=== PATIENT | male | born 1960 | race Caucasian/White ===

== ENCOUNTER 2020-08-27 12:40 | Outpatient (CLI) | payer BC, SELFPAY ==
--- NOTE | ~2020-08-27 | US_ITS ---
EXAMINATION: US scrotum doppler DATE: 08/27/2020 13:17 INDICATION: Retractile right testis TECHNIQUE: Testicular sonogram utilizing grayscale and Doppler COMPARISON: None. FINDINGS: The right testis measures 3.4 x 2.1 x 2.8 cm. The left testis measures 4.0 x 1.9 x 3.1 cm. Symmetric normal grayscale appearance to both testes. There is normal vascular flow to both testes. 2 mm right epididymal cyst. The right epididymis is otherwise normal with normal vascular flow. The left epididy mis is normal with normal vascular flow. There is no varicocele or hydrocele. IMPRESSION: 1. 2 mm right epididymal cyst. Otherwise normal scrotal ultrasound. Reviewed, dictated and finalized at location B.
== END 2020-08-27 12:41 | disposition home or self-care (01) ==
PROVIDERS: PCP Family Medicine; Visit Provider Family Medicine
DX: Q55.22 Retractile testis (principal); N50.3 Cyst of epididymis
CPT/HCPCS: 76870; 93976

== ENCOUNTER 2020-11-29 17:23 | Emergency (ER) | payer BC, SELFPAY ==
--- NOTE | 2020-11-29 17:33 | ED.GENADULT ---
HPI - General Adult General Chief complaint: Upper Respiratory Infection Stated complaint: upper respiratory infection Time Seen by Provider: 11/29/20 17:33 Source: patient and RN notes reviewed Mode of arrival: ambulatory Limitations: no limitations History of Present Illness HPI narrative: 60-year-old male presents with complaints of tickle in throat for the past 2 days. Fredis reports symptoms increased at approximately 1630 today, lost sense of taste and smell. Visit reports a coworker lost his sense of taste and smell on Sunday, November 27, 2020 and tested POSITIVE for COVID-19, in which he came in contact with for a brief period of time on Sunday, November 28, 2020. No treatment. Denies cough and chest congestion. Denies rhinorrhea and nasal congestion. Denies sore throat or problems swallowing. No high fevers, chills, and sweats. No nausea, vomiting, diarrhea, or abdominal pain. Tolerating p.o. intake well. Denies chest pain, coughing up blood, jaw pain, dental pain, facial pain, foreign body sensation, and rash. The patient reports he have not been diagnosed with COVID-19. The patient reports he is not waiting for the results of a COVID-19 lab test. The patient reports he do not have weakness or fatigue. Denies recent traveling. Fredis reports concerns for COVID-19 and exposure. At this time, patient is suspected of having COVID-19. Some parts of this dictation were generated by voice recognition software and may contain typographical and/or grammatical inaccuracies. Related Data Home Medications Medication Instructions Recorded Confirmed hydroxyurea 500 mg capsule 500 mg PO DAILY 08/13/20 11/29/20 Allergies Allergy/AdvReac Type Severity Reaction Status Date / Time latex Allergy Unknown Skin Verified 08/13/20 14:07 Reaction No Known Allergies Allergy Unknown Verified 08/13/20 14:07 Review of Systems Review of Systems: Narrative: CONSTITUTIONAL: Denies fever, chills, sweats. EYES: Denies visual changes, redness, discharge. ENT: Complains of loss sense of taste and smell. Denies rhinorrhea, congestion, sore throat, otalgia. CARDIOVASCULAR: Denies chest pain, palpitations, edema. RESPIRATORY: Denies wheezing, dyspnea, dry cough. GASTROINTESTINAL: Denies abdominal pain, nausea, vomiting, diarrhea. GENITOURINARY: Denies dysuria, hematuria, abnormal discharge. SKIN: Denies rash or itching. MUSCULOSKELETAL: Denies acute back pain, joint pain, myalgia. NEUROLOGIC: Denies numbness or focal weakness. PSYCHIATRIC: Denies anxiety or depression. All systems reviewed & are unremarkable except as noted in HPI and below [facility] Past Medical History Medical History (Updated 11/29/20 @ 18:04 by EMRE Archuleta) Atherosclerosis of aorta Colon polyps Diverticulosis Essential (primary) hypertension Essential thrombocythemia Hypogonadism Male erectile dysfunction, unspecified MRSA (methicillin resistant Staphylococcus aureus) June 2015 Other obesity Secondary polycythemia Testicular hypofunction Surgical History Surgical History (Updated 11/29/20 @ 17:41 by EMRE Archuleta) History of abdominal surgery In 2002 due to acute diverticulitis Family History Family History Father Hypertension, Onset Age: 68 Family history of cardiovascular disease, Onset Age: 68 Acute myocardial infarction, Onset Age: 68 Grandparent Carcinoma of colon, Onset Age: 70 Social History Social History (Updated 11/29/20 @ 17:42 by EMRE Archuleta) Smoking status: Former smoker Tobacco type: cigarettes Second hand tobacco smoke exposure: No Smoking end date: 11/12/02 Alcohol intake: current Substance use: never Living arrangements: with family Occupation/Education: occupation Gender identity (if verbalized by the patient): Male Comments At time of signature, agree with nurse past medical, surgi
[2020-11-29 17:41] VITALS: BP 158/86; PULSE 99; RESP 20; TEMP 37.7; O2SAT 98
[2020-11-29 17:43] VITALS: BP 158/86; PULSE 99; RESP 20; TEMP 37.7; O2SAT 98
== END 2020-11-29 18:24 | disposition home or self-care (01) ==
PROVIDERS: Emergency Provider Nurse Practitioner Family; PCP Family Medicine
DX: U07.1 COVID-19 (principal); Z87.891 Personal history of nicotine dependence; I70.209 Unspecified atherosclerosis of native arteries of extremities, unspecified extremity; I10 Essential (primary) hypertension; Z86.14 Personal history of Methicillin resistant Staphylococcus aureus infection; D47.3 Essential (hemorrhagic) thrombocythemia; D75.1 Secondary polycythemia
CPT/HCPCS: 87426; 99213; C9803; G0463

== ENCOUNTER → 2021-04-18 10:02 | Outpatient (CLI) | payer BC, SELFPAY ==
--- NOTE | ~2021-04-18 | XR_ITS ---
EXAMINATION: XR knee RT min 4V DATE: 04/18/2021 10:32 INDICATION: Right knee pain. TECHNIQUE: 4 views of right knee were obtained. COMPARISON: None. FINDINGS: Bone alignment is normal. No fracture. There is mild tricompartmental osteoarthritis. No kn ee joint effusion. IMPRESSION: 1. Mild right knee osteoarthritis. Reviewed, dictated and finalized at location A.
--- NOTE | ~2021-04-18 | XR_ITS ---
EXAMINATION: XR knee LT min 4V DATE: 04/18/2021 10:32 INDICATION: Left knee pain. TECHNIQUE: 4 views of left knee were obtained. COMPARISON: None. FINDINGS: Bone alignment is normal. No fracture. There is moderate osteoarthritis of medial compartme nt and mild osteoarthritis of lateral and patellofemoral compartments. No knee joint effusion. IMPRESSION: 1. Moderate left knee osteoarthritis. Reviewed, dictated and finalized at location A.
== END ==
PROVIDERS: PCP Family Medicine; Visit Provider Physician Assistant
DX: M25.561 Pain in right knee (principal); M25.562 Pain in left knee; M17.0 Bilateral primary osteoarthritis of knee
CPT/HCPCS: 73564

== ENCOUNTER 2023-08-02 12:47 | Outpatient (CLI) | payer OTHER, SELFPAY ==
[2023-08-02 13:54] LABS: Basophils Percent Auto 0.6 % (0.2-1.2); Eosinophils Absolute Auto 0.1 K/mm3 (0-0.3); Hematocrit 41.4 % (42.0-52.0); Hemoglobin 14.5 g/dL (14.0-18.0); Immature Granulocyte Absolute 0.01 K/mm3 (0.00-0.031); Immature Granulocyte Percent A 0.2 % (0-0.5); Lymphocytes Absolute Auto 1.39 K/mm3 (0.9-3.2); Lymphocytes Percent Auto 28.2 % (18.3-44.2); Mean Corpuscular Hemoglobin 40.3 pg (26-34); Mean Platelet Volume 10.5 fl (7.4-10.4); Monocytes Absolute Auto 0.5 K/mm3 (0.1-0.6); Monocytes Percent Auto 10.1 % (2.6-8.5); Neutrophils Percent Auto 59.9 % (45.5-73.1); Platelet Count Result 213 k/mm3 (150-375); Red Cell Distribution Width 12.9 % (11.5-14.5); White Blood Count 4.9 K/mm3 (4.5-10.0)
[2023-08-02 14:02] LABS: Alanine Aminotransferase 32 U/L (6-50); Albumin Level 4.3 g/dL (3.5-5.1); Alkaline Phosphatase 63 U/L (38-126); Anion Gap 5 mmol/L (8-16); Aspartate Amino Transferase 41 U/L (17-59); Bilirubin,Total 1.1 mg/dL (0.2-1.3); Blood Urea Nitrogen 16 mg/dL (9-20); Calcium 8.6 mg/dL (8.4-10.2); Carbon Dioxide 28 mmol/L (22-30); Chloride 103 mmol/L (98-107); Cholesterol 109 mg/dL (0-200); Estimated Glomerular Filt Rate > 60; Glucose 88 mg/dL (65-110); HDL Direct 33 mg/dL; Potassium 4.3 mmol/L (3.4-5.0); Sodium 136 mmol/L (137-145); Triglycerides 108 mg/dL (<150)
[2023-08-02 14:13] LABS: LDL Cholesterol Direct 60 mg/dL
[2023-08-02 14:18] LABS: Macrocytosis 1+ (NORMAL); Platelet Estimate Adequate (Adequate); Schistocytes None Seen (NORMAL)
[2023-08-03 18:12] LABS: Prostate Specific Antigen 2.1 ng/mL (< OR = 4.0)
[2023-08-07 00:10] LABS: Testosterone Total 494 ng/dL (250-1100)
== END 2023-08-02 12:48 | disposition home or self-care (01) ==
LOC: ANHGOSHLAB 12:48
PROVIDERS: PCP Emergency Medicine; Visit Provider Emergency Medicine
DX: E78.5 Hyperlipidemia, unspecified (principal); E29.1 Testicular hypofunction; D75.89 Other specified diseases of blood and blood-forming organs
CPT/HCPCS: 36415; 80053; 80061; 84153; 84403; 85025; G0103

== ENCOUNTER 2024-06-10 11:56 | Outpatient (CLI) | payer OTHER, SELFPAY ==
--- NOTE | 2024-06-10 | ECG_ITS ---
Test Date: 2024-06-10 12:25:52 Measurements Intervals [place] Rate: 57 P: 66 CO: 195 QRS: -40 QRSD: 135 T: 30 QT: 420 QTc: 412 Interpretive Statements SINUS BRADYCARDIA LEFT AXIS DEVIATION LEFT BUNDLE BRANCH BLOCK ABNORMAL ECG SEPTAL MYOCARDIAL INFARCTION , OF INDETERMINATE AGE [40+ ms Q WAVE IN V1/V2] No previous ECG available for comparison Electronically Signed On 06-10-2024 12:56:11 CDT by Maclolm Mcdowell D.O.
[2024-06-10 12:27] LABS: Basophils Percent Auto 0.5 % (0.2-1.2); Eosinophils Percent Auto 0.9 % (0-4.4); Hematocrit 40.9 % (42.0-52.0); Hemoglobin 14.4 g/dL (14.0-18.0); Immature Granulocyte Absolute 0.02 K/mm3 (0.00-0.031); Immature Granulocyte Percent A 0.5 % (0-0.5); Lymphocytes Absolute Auto 1.24 K/mm3 (0.9-3.2); Lymphocytes Percent Auto 28.8 % (18.3-44.2); Mean Corpuscular HGB Conc 35.2 g/dl (32-36); Mean Corpuscular Hemoglobin 41.1 pg (26-34); Mean Corpuscular Volume 116.9 fl (80-100); Mean Platelet Volume 9.9 fl (7.4-10.4); Monocytes Absolute Auto 0.5 K/mm3 (0.1-0.6); Monocytes Percent Auto 10.9 % (2.6-8.5); Neutrophils Absolute Auto 2.5 K/mm3 (1.3-6.7); Neutrophils Percent Auto 58.4 % (45.5-73.1); Platelet Count Result 264 k/mm3 (150-375); Red Cell Distribution Width 13.4 % (11.5-14.5); White Blood Count 4.3 K/mm3 (4.5-10.0)
[2024-06-10 12:37] LABS: Alanine Aminotransferase 31 U/L (6-50); Albumin Level 4.5 g/dL (3.5-5.1); Alkaline Phosphatase 57 U/L (38-126); Anion Gap 9 mmol/L (4-12); Aspartate Amino Transferase 35 U/L (17-59); Bilirubin,Total 1.1 mg/dL (0.2-1.3); Blood Urea Nitrogen 15 mg/dL (9-20); Calcium 8.6 mg/dL (8.4-10.2); Carbon Dioxide 27 mmol/L (22-30); Chloride 98 mmol/L (98-107); Estimated Glomerular Filt Rate > 60; Glucose 95 mg/dL (65-110); Potassium 4.2 mmol/L (3.4-5.0); Sodium 134 mmol/L (137-145)
[2024-06-10 13:02] LABS: Platelet Estimate Adequate (Adequate)
[2024-06-10 13:03] LABS: Anisocytosis 1+; Macrocytosis 2+ (NORMAL); Schistocytes None Seen
== END 2024-06-10 11:57 | disposition home or self-care (01) ==
PROVIDERS: PCP Emergency Medicine; Visit Provider Nurse Practitioner
DX: E78.5 Hyperlipidemia, unspecified (principal); I10 Essential (primary) hypertension; M75.32 Calcific tendinitis of left shoulder; R94.31 Abnormal electrocardiogram [ECG] [EKG]; I44.7 Left bundle-branch block, unspecified
CPT/HCPCS: 36415; 80053; 85025; 93005

== ENCOUNTER 2024-09-08 00:31 | Day surgery (SDC) | payer OTHER, SELFPAY ==
[2024-08-12 15:16] VITALS: BMI 36.2
--- NOTE | 2024-08-27 09:59 | PC.NURSE ---
pts colonoscopy rescheduled from 08/27/24 to 09/08/24. called pt to confirm new date and time, voiced understanding. confirmed no changes to health or medications since preop call on 08/12/24.
--- NOTE | 2024-09-07 14:58 | WPDANESEPP ---
Anes - Eval Pre Procedure Procedure: Operation Date: 09/08/24 09:00 Proposed Procedures p Colonoscopy - Osman Addison MD Date/Time: 09/07/24 14:58 Pre Op Diagnosis: hx of colon polyps Patient Data Age: 64 Gender: M Height: 1.88 m Weight: 128 kg Allergies Allergy/AdvReac Type Severity Reaction Status Date / Time latex Allergy Unknown Skin Verified 08/12/24 15:10 Reaction Home Medications Medication Instructions Recorded Confirmed Type loratadine 10 mg tablet (Claritin) 10 mg PO DAILY 30 days #30 tabs 11/29/20 08/12/24 Rx tadalafil 20 mg tablet (Cialis) 20 mg PO DAILY PRN sexual activity 02/13/22 08/12/24 Rx #30 tabs mecobalamin (vitamin B12) 1,000 1,000 mcg sublingual DAILY #60 tabs 05/08/23 08/12/24 Rx mcg disintegrating tablet,sublingual losartan 100 1 tablet PO DAILY #90 tabs 05/09/24 08/12/24 Rx mg-hydrochlorothiazide 25 mg tablet aspirin 81 mg tablet,delayed 81 mg PO DAILY 07/17/24 08/12/24 History release (Adult Low Dose Aspirin) celecoxib [Celebrex] 200 mg PO DAILY 07/17/24 08/27/24 History diazepam 5 mg tablet (Valium) 5 mg PO QHS PRN Pain 07/17/24 08/12/24 History hydroxyurea 500 mg capsule (Hydrea) 1,000 mg PO DAILY 07/17/24 08/12/24 History oxycodone 5 mg tablet 5 mg PO Q6-8H PRN Pain 07/17/24 08/12/24 History atorvastatin 10 mg tablet 10 mg PO DAILY #90 tabs 07/21/24 08/12/24 Rx latanoprost 0.005 % eye drops 1 drp EACH EYE HS 08/12/24 08/12/24 History testosterone 4 pump transdermal DAILY #225 grams 08/19/24 08/27/24 Rx Patient hx anesthesia problems: none Family hx anesthesia problems: none Results Review: All pre-operative results and documents have been reviewed as part of the pre-operative evaluation. [facility] Past Medical History Medical History Atherosclerosis of aorta Blue nevus of upper back excluding scapular region Broken leg (~06/26/21) Colon polyps COVID-19 Diverticulosis Dysplastic nevus Essential (primary) hypertension Essential thrombocythemia Male erectile dysfunction, unspecified MRSA (methicillin resistant Staphylococcus aureus) June 2015 Other obesity Secondary polycythemia Testicular dysfunction, unspecified Testicular hypofunction Surgical History Surgical History History of abdominal surgery In 2002 due to acute diverticulitis History of ankle surgery (~05/2024) right ATFL repair Family History Family History Father Hypertension, Onset Age: 68 Family history of cardiovascular disease, Onset Age: 68 Acute myocardial infarction, Onset Age: 68 Grandparent Carcinoma of colon, Onset Age: 70 Social History Social History Social History: Caffeine-daily Smoking packs per day: 1.5 Smoking cigarettes per day: 30.0 Smoking status: Former smoker Tobacco type: cigarettes Second hand tobacco smoke exposure: No Smoking end date: 11/12/02 Alcohol intake: current Alcohol use details: occasional Substance use: never Substance use type: does not use Do You Feel Safe in your Home?: Yes Lack of Transportation: No Lack of Food: Never True Current Housing: I Have Housing Concerned About Future Housing: No Difficulty Paying Gas/Electric Bills: No Difficulty Paying for Meds: No Currently Unemployed: No Education: Trade/Vocational Certificate Difficulty w/ Childcare or Family Care: No Living arrangements: alone Occupation/Education: occupation Gender identity (if verbalized by the patient): Male Spiritual care concerns: No Exam Day of Procedure 09/07/24 14:58
[2024-09-08 07:59] VITALS: BP 132/73; PULSE 98; RESP 18; TEMP 36.5; O2SAT 99
[2024-09-08] MEDS: LACTATED RINGERS 1,000 ML 150 ML IV CONT (08:06)
--- NOTE | 2024-09-08 08:41 | WPDANESEPPF ---
Anes - Initial Pre Proc Eval Procedure: Operation Date: 09/08/24 09:00 Proposed Procedures p Colonoscopy - Osman Addison MD Date/Time: 09/08/24 08:41 Surgeon: Osman Addison MD Pre Op Diagnosis: hx of colon polyps Patient Data Age: 64 Gender: M Height: 1.88 m Weight: 127 kg Last Vital Signs Temp 36.5 C 09/08/24 07:59 Pulse 98 09/08/24 07:59 Resp 18 09/08/24 07:59 BP 132/73 09/08/24 07:59 Pulse Ox 99 09/08/24 07:59 O2 Del Method Room Air 09/08/24 07:59 Allergies Allergy/AdvReac Type Severity Reaction Status Date / Time latex Allergy Unknown Skin Verified 09/08/24 07:54 Reaction Home Medications Medication Instructions Recorded Confirmed Type loratadine 10 mg tablet (Claritin) 10 mg PO DAILY 30 days #30 tabs 11/29/20 09/08/24 Rx tadalafil 20 mg tablet (Cialis) 20 mg PO DAILY PRN sexual activity 02/13/22 09/08/24 Rx #30 tabs mecobalamin (vitamin B12) 1,000 1,000 mcg sublingual DAILY #60 tabs 05/08/23 09/08/24 Rx mcg disintegrating tablet,sublingual losartan 100 1 tablet PO DAILY #90 tabs 05/09/24 09/08/24 Rx mg-hydrochlorothiazide 25 mg tablet aspirin 81 mg tablet,delayed 81 mg PO DAILY 07/17/24 09/08/24 History release (Adult Low Dose Aspirin) celecoxib [Celebrex] 200 mg PO DAILY 07/17/24 09/08/24 History diazepam 5 mg tablet (Valium) 5 mg PO QHS PRN Pain 07/17/24 09/08/24 History hydroxyurea 500 mg capsule (Hydrea) 1,000 mg PO DAILY 07/17/24 09/08/24 History oxycodone 5 mg tablet 5 mg PO Q6-8H PRN Pain 07/17/24 09/08/24 History atorvastatin 10 mg tablet 10 mg PO DAILY #90 tabs 07/21/24 09/08/24 Rx latanoprost 0.005 % eye drops 1 drp EACH EYE HS 08/12/24 09/08/24 History testosterone 4 pump transdermal DAILY #225 grams 10/08/24 10/28/24 Rx Patient hx anesthesia problems: none Family hx anesthesia problems: none Results Review: All pre-operative results and documents have been reviewed as part of the pre-operative evaluation. [facility] Past Medical History Medical History Atherosclerosis of aorta Blue nevus of upper back excluding scapular region Broken leg (~06/26/21) Colon polyps COVID-19 Diverticulosis Dysplastic nevus Essential (primary) hypertension Essential thrombocythemia Male erectile dysfunction, unspecified MRSA (methicillin resistant Staphylococcus aureus) June 2015 Other obesity Secondary polycythemia Testicular dysfunction, unspecified Testicular hypofunction Surgical History Surgical History History of abdominal surgery In 2002 due to acute diverticulitis History of ankle surgery (~05/2024) right ATFL repair Family History Family History Father Hypertension, Onset Age: 68 Family history of cardiovascular disease, Onset Age: 68 Acute myocardial infarction, Onset Age: 68 Grandparent Carcinoma of colon, Onset Age: 70 Social History Social History Social History: Caffeine-daily Smoking packs per day: 1.5 Smoking cigarettes per day: 30.0 Smoking status: Former smoker Tobacco type: cigarettes Second hand tobacco smoke exposure: No Smoking end date: 11/12/02 Alcohol intake: current Alcohol use details: occasional Substance use: never Substance use type: does not use Do You Feel Safe in your Home?: Yes Lack of Transportation: No Lack of Food: Never True Current Housing: I Have Housing Concerned About Future Housing: No Difficulty Paying Gas/Electric Bills: No Difficulty Paying for Meds: No Currently Unemployed: No Education: Trade/Vocational Certificate Difficulty w/ Childcare or Family Care: No Living arrangements: alone Occupation/Education: occupation Gender identity (if verbalized by the patient): Male Spiritual care concerns: No Anes - Eval Final PreProcedure Day of Procedure 09/08/24 08:41 Patient weight: obese Heart: regular rate and rhythm Lungs: decreased breath sounds Airway: Mallampati scale class II Neurological: alert and oriented Last oral intake: >/= 8 hours ASA classification: III Emergent: no Anesthetic plan: proceed Anesthesia type and monitoring: general GIVS and standard monitoring Results Review: All pre-operative results and documents have been reviewed as part of the pre-operative evaluation. Informed Consent: The patient's anesthetic plan and its attendant risks and benefits were discussed with the patient/family/POA. Questions were solicited and answers provided to the satisfaction of the patient/family/POA.
--- NOTE | 2024-09-08 09:06 | PM.IMHP ---
H&P: HPI History of Present Illness Date/Time: 09/08/24 09:06 Chief Complaint: History of colon polyps Narrative: The patient has a history of colonic polyps, the last colonoscopy was 7 y ago Review of Systems Review of Systems: All systems reviewed & are unremarkable except as noted in HPI and below [facility] Past Medical History Medical History Atherosclerosis of aorta Blue nevus of upper back excluding scapular region Broken leg (~06/26/21) Colon polyps COVID-19 Diverticulosis Dysplastic nevus Essential (primary) hypertension Essential thrombocythemia Male erectile dysfunction, unspecified MRSA (methicillin resistant Staphylococcus aureus) June 2015 Other obesity Secondary polycythemia Testicular dysfunction, unspecified Testicular hypofunction Surgical History Surgical History History of abdominal surgery In 2002 due to acute diverticulitis History of ankle surgery (~05/2024) right ATFL repair Family History Family History Father Hypertension, Onset Age: 68 Family history of cardiovascular disease, Onset Age: 68 Acute myocardial infarction, Onset Age: 68 Grandparent Carcinoma of colon, Onset Age: 70 Social History Social History Social History: Caffeine-daily Smoking packs per day: 1.5 Smoking cigarettes per day: 30.0 Smoking status: Former smoker Tobacco type: cigarettes Second hand tobacco smoke exposure: No Smoking end date: 11/12/02 Alcohol intake: current Alcohol use details: occasional Substance use: never Substance use type: does not use Do You Feel Safe in your Home?: Yes Lack of Transportation: No Lack of Food: Never True Current Housing: I Have Housing Concerned About Future Housing: No Difficulty Paying Gas/Electric Bills: No Difficulty Paying for Meds: No Currently Unemployed: No Education: Trade/Vocational Certificate Difficulty w/ Childcare or Family Care: No Living arrangements: alone Occupation/Education: occupation Gender identity (if verbalized by the patient): Male Spiritual care concerns: No Meds Home Medications and Allergies Home Medications Medication Instructions Recorded Confirmed Type loratadine 10 mg tablet (Claritin) 10 mg PO DAILY 30 days #30 tabs 11/29/20 09/08/24 Rx tadalafil 20 mg tablet (Cialis) 20 mg PO DAILY PRN sexual activity 02/13/22 09/08/24 Rx #30 tabs mecobalamin (vitamin B12) 1,000 1,000 mcg sublingual DAILY #60 tabs 05/08/23 09/08/24 Rx mcg disintegrating tablet,sublingual losartan 100 1 tablet PO DAILY #90 tabs 05/09/24 09/08/24 Rx mg-hydrochlorothiazide 25 mg tablet aspirin 81 mg tablet,delayed 81 mg PO DAILY 07/17/24 09/08/24 History release (Adult Low Dose Aspirin) celecoxib [Celebrex] 200 mg PO DAILY 07/17/24 09/08/24 History diazepam 5 mg tablet (Valium) 5 mg PO QHS PRN Pain 07/17/24 09/08/24 History hydroxyurea 500 mg capsule (Hydrea) 1,000 mg PO DAILY 07/17/24 09/08/24 History oxycodone 5 mg tablet 5 mg PO Q6-8H PRN Pain 07/17/24 09/08/24 History atorvastatin 10 mg tablet 10 mg PO DAILY #90 tabs 07/21/24 09/08/24 Rx latanoprost 0.005 % eye drops 1 drp EACH EYE HS 08/12/24 09/08/24 History testosterone 4 pump transdermal DAILY #225 grams 08/19/24 09/08/24 Rx Allergies Allergy/AdvReac Type Severity Reaction Status Date / Time latex Allergy Unknown Skin Verified 09/08/24 07:54 Reaction Vital Signs Vital Signs - 24 hr 09/08/24 07:59 Temperature 97.7 F Pulse Rate 98 Respiratory Rate 18 Blood Pressure 132/73 Pulse Oximetry 99 Oxygen Delivery Room Air Assessment and Plan Assessment and plan (1) History of colon polyps: Code(s): Z86.010 - Personal history of colon polyps Status: Acute Plan The patient is deemed a good candidate for the procedure. Consent signed. Will proceed.
[2024-09-08 09:35] VITALS: BP 115/71; PULSE 75; RESP 17; O2SAT 96
[2024-09-08 09:45] VITALS: BP 122/80; PULSE 76; RESP 21; O2SAT 98
[2024-09-08 09:55] VITALS: BP 118/77; PULSE 67; RESP 19; O2SAT 98
== END 2024-09-08 10:20 | disposition home or self-care (01) ==
PROVIDERS: PCP Emergency Medicine; Visit Provider Internal Medicine Gastroenterology
PROC: 0DJD8ZZ Inspection of Lower Intestinal Tract, Via Natural or Artificial Opening Endoscopic (ICD-10-PCS; CPT 45378; principal; 2024-09-08 09:00)
DX: Z12.11 Encounter for screening for malignant neoplasm of colon (principal); K64.8 Other hemorrhoids; K57.30 Diverticulosis of large intestine without perforation or abscess without bleeding; I70.0 Atherosclerosis of aorta; I10 Essential (primary) hypertension; D47.3 Essential (hemorrhagic) thrombocythemia; N52.9 Male erectile dysfunction, unspecified; D75.1 Secondary polycythemia; E29.1 Testicular hypofunction; E66.9 Obesity, unspecified; Z68.35 Body mass index [BMI] 35.0-35.9, adult; Z79.82 Long term (current) use of aspirin; Z79.891 Long term (current) use of opiate analgesic; Z79.1 Long term (current) use of non-steroidal anti-inflammatories (NSAID); Z98.890 Other specified postprocedural states; Z87.891 Personal history of nicotine dependence; Z86.0100 Personal history of colon polyps, unspecified; Z87.19 Personal history of other diseases of the digestive system; Z80.0 Family history of malignant neoplasm of digestive organs; Z82.49 Family history of ischemic heart disease and other diseases of the circulatory system
CPT/HCPCS: 45378; J2003; J2704; J7120